=== PATIENT | male | born 1965 | race Native Hawaiian/Other Pacific Islander ===

== ENCOUNTER 2022-11-29 20:32 | Emergency (ER) | payer OTHER ==
[~2022-11-29] VITALS: Ht 195.6 cm; Wt 124.7 kg
[2022-11-29 20:43] VITALS: BP 135/91; TEMP 97.8
== END 2022-11-29 22:17 | disposition home or self-care (01) ==
LOC: ED 20:32
PROC: 0JC10ZZ Extirpation of Matter from Face Subcutaneous Tissue and Fascia, Open Approach (ICD-10-PCS; principal; 2022-11-29)
DX: S01.84XA Puncture wound with foreign body of other part of head, initial encounter (principal); W45.8XXA Other foreign body or object entering through skin, initial encounter; I10 Essential (primary) hypertension
CPT/HCPCS: 99282; J2001